=== PATIENT | male | born 1950 | race Caucasian/White ===

== ENCOUNTER → 2021-06-07 | Day surgery (SDC) | payer BC | END | disposition home or self-care (01) | LOC: JRADIR 09:20 | PROVIDERS: ATTEND Internal Medicine Endocrinology, Diabetes & Metabolism | PROC: 0G9H3ZX Drainage of Right Thyroid Gland Lobe, Percutaneous Approach, Diagnostic (ICD-10-PCS; principal; 2021-06-07) | DX: E04.1 Nontoxic single thyroid nodule (principal) | CPT/HCPCS: 10005; 76942; 88173; 88305-TC ==

== ENCOUNTER 2022-04-10 04:39 | Day surgery (SDC) | payer BC ==
[2022-04-09 10:08] VITALS: BMI 30.5
[2022-04-10 10:48] VITALS: TEMP 97.8
[2022-04-10 13:45] VITALS: BP 126/73; PULSE 67; RESP 20
== END 2022-04-10 13:45 | disposition home or self-care (01) ==
LOC: JASU-ENDO 04:39
PROVIDERS: ATTEND Student in an Organized Health Care Education/Training Program
PROC: 0DBL8ZX Excision of Transverse Colon, Via Natural or Artificial Opening Endoscopic, Diagnostic (ICD-10-PCS; 2022-04-10)
PROC: 0D9K8ZX Drainage of Ascending Colon, Via Natural or Artificial Opening Endoscopic, Diagnostic (ICD-10-PCS; 2022-04-10)
PROC: 0D9L8ZX Drainage of Transverse Colon, Via Natural or Artificial Opening Endoscopic, Diagnostic (ICD-10-PCS; 2022-04-10)
PROC: 0DBK8ZX Excision of Ascending Colon, Via Natural or Artificial Opening Endoscopic, Diagnostic (ICD-10-PCS; principal; 2022-04-10 09:30)
DX: Z12.11 Encounter for screening for malignant neoplasm of colon (principal); D12.2 Benign neoplasm of ascending colon; D12.3 Benign neoplasm of transverse colon; K63.89 Other specified diseases of intestine
CPT/HCPCS: 88305-TC